=== PATIENT | male | born 1970 | race Caucasian/White ===

== ENCOUNTER 2019-12-18 13:49 | Inpatient (IN) | payer BC, OTHER ==
[~2019-12-18] VITALS: Ht 177.8 cm; Wt 68.0 kg
[2019-12-18] MEDS ORDERED: DERMOPLAST 60ML BOTTLE TOP ONE (14:15)
[2019-12-18] MEDS ORDERED: SODIUM CHLORIDE 0.9% 500 ML IVB ONE (14:15)
[2019-12-18 14:51] LABS: Basophils # (auto) 0 10 ^3/uL (0-0.2); Basophils % (auto) 0.4 % (0.0-2.0); Eosinophils # (auto) 0.1 10 ^3/uL (0-0.8); Eosinophils % (auto) 1.1 % (0.0-7.0); Hematocrit 44.9 % (41.0-53.0); Hemoglobin 15.6 g/dL (13.5-17.5); Lymphocytes # (auto) 1.8 10 ^3/uL (0.4-5.4); Lymphocytes % (auto) 24.9 % (10.0-50.0); Mean Corpuscular Hemoglobin 32.3 pg (28.0-32.0); Mean Corpuscular Hgb Conc. 34.8 g/dL (32.0-36.0); Monocytes # (auto) 0.5 10 ^3/uL (0-1.3); Monocytes % (auto) 7.2 % (0.0-12.0); Neutrophils # (auto) 4.8 10 ^3/uL (1.6-8.6); Neutrophils % (auto) 66.4 % (37.0-80.0); Nucleated Red Blood Cells % 0.2 %; Platelet Count (auto) 216 10^3/uL (140-450); Red Blood Cells 4.83 10^6/uL (4.5-5.90); Red Cell Distribution Width 14.4 % (11.8-14.3); White Blood Cell 7.2 10^3/uL (4.4-10.8)
[2019-12-18 15:08] LABS: Alanine Aminotransferase 39 U/L (16-61); Albumin 3.6 g/dL (3.4-5.0); Anion Gap 7 (5-15); Aspartate Aminotransferase 24 U/L (15-37); BUN/Creatinine Ratio 12.2; Blood Alcohol < 3.0 mg/dL (0-5); Blood Urea Nitrogen 17 mg/dL (7-18); Calcium 8.6 mg/dL (8.5-10.1); Carbon Dioxide 25 mmol/L (21-32); Chloride 106 mmol/L (98-107); GFR African American 70 mL/min; GFR Non-African American 57 mL/min; Glucose 129 mg/dL (74-106); Potassium 3.6 mmol/L (3.5-5.1); Sodium 138 mmol/L (136-145)
[2019-12-18 15:11] LABS: Alkaline Phosphatase 90 U/L (45-117); Bilirubin, Total 0.6 mg/dL (0.2-1.0); Total Protein 7.2 g/dL (6.4-8.2)
[2019-12-18] MEDS ORDERED: LORazepam 2MG/ML-1ML VIAL ONE (16:17)
[2019-12-18] MEDS ORDERED: LORazepam 2MG/ML-1ML VIAL IV ONE (16:30)
[2019-12-18] MEDS ORDERED: LAMO25TA2 PO (16:53)
[2019-12-18] MEDS ORDERED: LEVE500T32 PO (16:53)
[2019-12-18] MEDS ORDERED: ONDANSETRON HCL 4 MG/2 ML VIAL IV PRN (17:00)
[2019-12-18] MEDS ORDERED: HYDROcodone-ACET 5/325MG TAB PO PRN (17:00)
[2019-12-18] MEDS ORDERED: LORazepam 2MG/ML-1ML VIAL IV PRN (17:00)
[2019-12-18] MEDS ORDERED: ACETAMINOPHEN 500 MG TAB PO PRN (17:00)
[2019-12-18] MEDS ORDERED: MORPHINE SULF INJ 2 MG/ML SYRINGE 1ML IV PRN ×2 (17:00)
[2019-12-18] MEDS ORDERED: NITROGLYCERIN 0.4 MG SL TAB SL PRN (17:00)
[2019-12-18 17:31] LABS: Alcohol, Urine < 3.0 mg/dL (0-10); Amphetamine Screen, Urine NEGATIVE (NEGATIVE); Barbiturate Scree,Urine NEGATIVE (NEGATIVE); Benzodiazephine Screen, Urine NEGATIVE (NEGATIVE); Cannabinoid Screen, Urine NEGATIVE (NEGATIVE); Cocaine Screen, Urine NEGATIVE (NEGATIVE); Opiate Scree,Urine NEGATIVE (NEGATIVE); Phencyclidine Screen, Urine NEGATIVE (NEGATIVE)
[2019-12-18 19:49] LABS: Folate (Folic Acid) 19.72 ng/mL (5.38-24)
[2019-12-18] MEDS ORDERED: levETIRAcetam 500 MG TAB PO SCH (22:00)
[2019-12-18] MEDS ORDERED: lamoTRIgine 25 MG TAB PO SCH (22:00)
[2019-12-19 07:56] VITALS: BP 132/65
[2019-12-19] MEDS ORDERED: FAMOTIDINE 20 MG TAB PO SCH (10:00)
== END 2019-12-19 09:08 | disposition left against medical advice (07) | DRG 101 ==
LOC: ER 13:49 → EDBD 13:49 → TELE 13:50
PROVIDERS: ADMIT Nurse Practitioner Acute Care; ATTEND Internal Medicine
DX: G40.401 Other generalized epilepsy and epileptic syndromes, not intractable, with status epilepticus (principal); M48.02 Spinal stenosis, cervical region; N18.30 Chronic kidney disease, stage 3 unspecified; S00.11XA Contusion of right eyelid and periocular area, initial encounter; Z79.899 Other long term (current) drug therapy; Z85.841 Personal history of malignant neoplasm of brain; Z87.442 Personal history of urinary calculi; S09.8XXA Other specified injuries of head, initial encounter; S60.511A Abrasion of right hand, initial encounter; W18.30XA Fall on same level, unspecified, initial encounter; Y93.89 Activity, other specified; Y92.89 Other specified places as the place of occurrence of the external cause
CPT/HCPCS: 36415; 36600; 70450; 72125; 80053; 80307; 80320; 82306; 82746; 82805; 84425; 84443; 85025; 96361; 96374; G0378; J7060

== ENCOUNTER 2020-07-23 16:59 | Inpatient (IN) | payer BC, MEDICARE ==
[~2020-07-23] VITALS: Ht 177.8 cm; Wt 80.2 kg
[~2020-07-23 16:59] MED LIST: LAMO25TA2 PO; LEVE500T32 PO
[2020-07-23 17:53] LABS: Basophils # (auto) 0 10 ^3/uL (0-0.2); Basophils % (auto) 0.5 % (0.0-2.0); Eosinophils # (auto) 0 10 ^3/uL (0-0.8); Eosinophils % (auto) 0.9 % (0.0-7.0); Hematocrit 43.9 % (41.0-53.0); Hemoglobin 15.2 g/dL (13.5-17.5); Lymphocytes # (auto) 1.6 10 ^3/uL (0.4-5.4); Lymphocytes % (auto) 31.2 % (10.0-50.0); Mean Corpuscular Hemoglobin 31.8 pg (28.0-32.0); Mean Corpuscular Hgb Conc. 34.6 g/dL (32.0-36.0); Monocytes # (auto) 0.3 10 ^3/uL (0-1.3); Monocytes % (auto) 6.6 % (0.0-12.0); Neutrophils # (auto) 3.1 10 ^3/uL (1.6-8.6); Neutrophils % (auto) 60.8 % (37.0-80.0); Nucleated Red Blood Cells % 0.1 %; Platelet Count (auto) 176 10^3/uL (140-450); Red Blood Cells 4.78 10^6/uL (4.5-5.90); Red Cell Distribution Width 14.2 % (11.8-14.3)
[2020-07-23 18:09] LABS: Albumin 3.8 g/dL (3.4-5.0); Calcium 8.9 mg/dL (8.5-10.1); Potassium 4.3 mmol/L (3.5-5.1)
[2020-07-23 18:13] LABS: BUN/Creatinine Ratio 10.1; Bilirubin, Total 0.5 mg/dL (0.2-1.0); Total Protein 7.3 g/dL (6.4-8.2)
[2020-07-23] MEDS ORDERED: levETIRAcetam 500 MG/5ML INJ IV ONE (20:01)
[2020-07-23] MEDS ORDERED: LORazepam 2MG/ML-1ML VIAL IV PRN (21:00)
[2020-07-23] MEDS ORDERED: TEMAZEPAM 15 MG CAP PO PRN (21:00)
[2020-07-23] MEDS ORDERED: ONDANSETRON HCL 4 MG/2 ML VIAL IV PRN (21:00)
[2020-07-23] MEDS ORDERED: ACETAMINOPHEN 325 MG TAB PO PRN (21:00)
[2020-07-23] MEDS ORDERED: FAMOTIDINE 20 MG TAB PO SCH (22:00)
[2020-07-23] MEDS: lamoTRIgine 25 MG TAB PO SCH (22:00)
[2020-07-23 23:11] LABS: Urine Bacteria FEW /hpf (None Seen); Urine Blood Negative /uL (Negative); Urine Specific Gravity 1.021 (1.001-1.035); Urine Sperm PRESENT /hpf (None Seen); Urine WBC 1 /hpf (0 - 3)
[2020-07-24 06:51] LABS: Basophils # (auto) 0 10 ^3/uL (0-0.2); Basophils % (auto) 0.3 % (0.0-2.0); Eosinophils # (auto) 0 10 ^3/uL (0-0.8); Eosinophils % (auto) 0.2 % (0.0-7.0); Hematocrit 46.5 % (41.0-53.0); Hemoglobin 16.2 g/dL (13.5-17.5); Lymphocytes % (auto) 22.9 % (10.0-50.0); Mean Corpuscular Hemoglobin 31.7 pg (28.0-32.0); Mean Corpuscular Hgb Conc. 34.8 g/dL (32.0-36.0); Mean Corpuscular Volume 91.1 fL (80.0-100.0); Monocytes # (auto) 0.8 10 ^3/uL (0-1.3); Monocytes % (auto) 9.4 % (0.0-12.0); Neutrophils # (auto) 5.8 10 ^3/uL (1.6-8.6); Neutrophils % (auto) 67.2 % (37.0-80.0); Nucleated Red Blood Cells % 0.2 %; Platelet Count (auto) 190 10^3/uL (140-450); Red Cell Distribution Width 14.3 % (11.8-14.3); White Blood Cell 8.6 10^3/uL (4.4-10.8)
[2020-07-24 07:14] LABS: Potassium 3.4 mmol/L (3.5-5.1)
[2020-07-24 07:18] LABS: BUN/Creatinine Ratio 11.1
[2020-07-24] MEDS: levETIRAcetam 500 MG TAB PO SCH ×3 (08:46→22:00)
[2020-07-24] MEDS ORDERED: levETIRAcetam 500 MG TAB PO SCH (10:00)
[2020-07-24] MEDS: lamoTRIgine 25 MG TAB PO SCH ×2 (10:42→22:49)
[2020-07-24] MEDS ORDERED: KEP500T PO (15:18)
[2020-07-24] MEDS ORDERED: IBUP600T28 PO (15:19)
[2020-07-24] MEDS ORDERED: MULT-1018 PO (15:20)
[2020-07-24] MEDS ORDERED: POM (15:20)
[2020-07-24 20:20] VITALS: BP 132/67
[2020-07-25 05:00] VITALS: BP 105/77
[2020-07-25] MEDS: levETIRAcetam 500 MG TAB PO SCH ×2 (09:04→22:03)
[2020-07-25] MEDS: lamoTRIgine 25 MG TAB PO SCH ×2 (09:30→22:03)
[2020-07-25 09:45] VITALS: BP 103/72
[2020-07-25 13:00] VITALS: BP 111/78
[2020-07-25 16:33] VITALS: BP 122/80
[2020-07-25 21:16] VITALS: BP 127/81
[2020-07-26 04:14] VITALS: BP 105/87
[2020-07-26 09:00] VITALS: BP 98/64
[2020-07-26] MEDS: levETIRAcetam 500 MG TAB PO SCH (10:05)
[2020-07-26] MEDS: lamoTRIgine 25 MG TAB PO SCH (10:06)
[2020-07-26 10:51] VITALS: BP 98/68
== END 2020-07-26 11:50 | disposition home or self-care (01) | DRG 101 ==
LOC: EDBD 16:59 → ER 16:59 → OVERFLOW 20:51 → EAST 07-24 20:40 → WEST WING 07-25 09:43
PROVIDERS: ADMIT Nurse Practitioner; ATTEND Family Medicine
DX: G40.409 Other generalized epilepsy and epileptic syndromes, not intractable, without status epilepticus (principal); Z20.822 Contact with and (suspected) exposure to COVID-19; Z79.899 Other long term (current) drug therapy; Z85.841 Personal history of malignant neoplasm of brain; Z86.73 Personal history of transient ischemic attack (TIA), and cerebral infarction without residual deficits; Z87.442 Personal history of urinary calculi
CPT/HCPCS: 36415; 70450; 80048; 80053; 81001; 83605; 85025; 87426; 93005; 95819; 96365; G0378; J7060

== ENCOUNTER 2021-07-15 09:15 | Inpatient (IN) | payer OTHER, MEDICARE ==
[~2021-07-15] VITALS: Ht 365.8 cm; Wt 99.8 kg
[~2021-07-15 09:15] MED LIST changes: +IBUP600T28 PO; +KEP500T PO; -LEVE500T32 PO; +MULT-1018 PO; +POM
[2021-07-15] MEDS ORDERED: SODIUM CHLORIDE 0.9% 1,000 ML IV ONE (10:30)
[2021-07-15 11:07] LABS: Basophils # (auto) 0 10 ^3/uL (0-0.2); Basophils % (auto) 0.1 % (0.0-2.0); Eosinophils # (auto) 0 10 ^3/uL (0-0.8); Eosinophils % (auto) 0.1 % (0.0-7.0); Hematocrit 47.1 % (41.0-53.0); Hemoglobin 16.1 g/dL (13.5-17.5); Lymphocytes # (auto) 1.2 10 ^3/uL (0.4-5.4); Lymphocytes % (auto) 10.2 % (10.0-50.0); Mean Corpuscular Hemoglobin 31.8 pg (28.0-32.0); Mean Corpuscular Hgb Conc. 34.1 g/dL (32.0-36.0); Mean Corpuscular Volume 93.2 fL (80.0-100.0); Monocytes # (auto) 0.7 10 ^3/uL (0-1.3); Neutrophils # (auto) 9.7 10 ^3/uL (1.6-8.6); Neutrophils % (auto) 83.6 % (37.0-80.0); Nucleated Red Blood Cells % 0.1 %; Red Blood Cells 5.06 10^6/uL (4.5-5.90); Red Cell Distribution Width 13.9 % (11.8-14.3); White Blood Cell 11.6 10^3/uL (4.4-10.8)
[2021-07-15 11:28] LABS: Albumin 3.8 g/dL (3.4-5.0); Potassium 3.6 mmol/L (3.5-5.1)
[2021-07-15 11:31] LABS: BUN/Creatinine Ratio 8.8
[2021-07-15 11:33] LABS: Bilirubin, Total 0.4 mg/dL (0.2-1.0); Total Protein 7.3 g/dL (6.4-8.2)
[2021-07-15] MEDS ORDERED: MORPHINE SULFATE INJ 2 MG/ml SYRG IV PRN ×2 (13:15→16:45)
[2021-07-15] MEDS ORDERED: cefTRIAXone 1GM/50ML D5W 50 ML IV ONE (13:15)
[2021-07-15] MEDS ORDERED: AZITHROMYCIN 500MG/ 250ML 250 ML IV ONE (13:15)
[2021-07-15] MEDS ORDERED: NITROGLYCERIN 0.4 MG SL TAB SL PRN (13:15)
[2021-07-15] MEDS ORDERED: LIDOCAINE 2% JELLY 11ml (GLYDO) UR ONE (15:00)
[2021-07-15] MEDS: LORazepam 2MG/ML-1ML VIAL IV PRN ×2 (15:30→16:42)
[2021-07-15] MEDS ORDERED: SODIUM CHLORIDE 0.9% 2,000 ML IV ONE (16:15)
[2021-07-15] MEDS ORDERED: hydrALAZINE HCL 20 MG/ML VL IV PRN (16:45)
[2021-07-15] MEDS ORDERED: HYDROcodone-ACET 5/325MG TAB PO PRN (16:45)
[2021-07-15] MEDS ORDERED: DOCUSATE SOD 100 MG CAP PO PRN (16:45)
[2021-07-15] MEDS ORDERED: ONDANSETRON HCL 4 MG/2 ML VIAL IV PRN (16:45)
[2021-07-15 17:14] LABS: Magnesium 2.5 mg/dL (1.6-2.6)
[2021-07-15] MEDS: SODIUM CHLORIDE 0.9% 1,000 ML IV SCH (20:13)
[2021-07-15] MEDS: levETIRAcetam INJ 1,250 MG in D5W 5% 100 ML IV SCH (21:46)
[2021-07-15] MEDS: lamoTRIgine 25 MG TAB PO SCH (21:46)
[2021-07-15] MEDS: CLINDAMYCIN 600MG IV 50 ML IV SCH (22:29)
[2021-07-16] MEDS: LORazepam 0.5 MG TAB PO PRN ×2 (03:03→21:03)
[2021-07-16] MEDS: CLINDAMYCIN 600MG IV 50 ML IV SCH ×3 (05:37→23:21)
[2021-07-16 07:12] LABS: Basophils # (auto) 0 10 ^3/uL (0-0.2); Basophils % (auto) 0.3 % (0.0-2.0); Eosinophils # (auto) 0 10 ^3/uL (0-0.8); Eosinophils % (auto) 0.1 % (0.0-7.0); Hematocrit 41.7 % (41.0-53.0); Hemoglobin 14.4 g/dL (13.5-17.5); Lymphocytes # (auto) 1.5 10 ^3/uL (0.4-5.4); Lymphocytes % (auto) 19.6 % (10.0-50.0); Mean Corpuscular Hemoglobin 31.8 pg (28.0-32.0); Mean Corpuscular Hgb Conc. 34.6 g/dL (32.0-36.0); Monocytes # (auto) 0.6 10 ^3/uL (0-1.3); Monocytes % (auto) 7.2 % (0.0-12.0); Neutrophils # (auto) 5.7 10 ^3/uL (1.6-8.6); Neutrophils % (auto) 72.8 % (37.0-80.0); Nucleated Red Blood Cells % 0.1 %; Red Blood Cells 4.53 10^6/uL (4.5-5.90); Red Cell Distribution Width 13.9 % (11.8-14.3); White Blood Cell 7.8 10^3/uL (4.4-10.8)
[2021-07-16 07:26] LABS: INR 1.04 (0.9-1.15); Partial Thromboplastin Time 28.5 sec (23.6-33.0)
[2021-07-16 07:34] LABS: Potassium 3.6 mmol/L (3.5-5.1)
[2021-07-16 07:42] LABS: Thyroid Stimulating Hormone 1.95 uIU/mL (0.358-3.74)
[2021-07-16 07:44] LABS: Albumin 3.4 g/dL (3.4-5.0); BUN/Creatinine Ratio 8.7; Bilirubin, Total 0.6 mg/dL (0.2-1.0); CRP High Sensitivity 0.68 mg/dL (< 0.3); Calcium 8.5 mg/dL (8.5-10.1); Magnesium 2.5 mg/dL (1.6-2.6); Phosphorus 3.3 mg/dL (2.5-4.90); Total Protein 6.8 g/dL (6.4-8.2); Uric Acid 5.1 mg/dL (3.5-7.2)
[2021-07-16] MEDS: cefTRIAXone 1GM/50ML D5W 50 ML IV SCH (08:35)
[2021-07-16 09:09] LABS: Amphetamine Screen, Urine NEGATIVE (NEGATIVE); Barbiturate Scree,Urine NEGATIVE (NEGATIVE); Benzodiazephine Screen, Urine NEGATIVE (NEGATIVE); Cannabinoid Screen, Urine NEGATIVE (NEGATIVE); Cocaine Screen, Urine NEGATIVE (NEGATIVE); Opiate Scree,Urine NEGATIVE (NEGATIVE); Phencyclidine Screen, Urine NEGATIVE (NEGATIVE)
[2021-07-16 09:12] LABS: Urine Bacteria NONE SEEN /hpf (None Seen); Urine Blood 1+ /uL (Negative); Urine Specific Gravity 1.008 (1.001-1.035); Urine WBC 10 /hpf (0 - 3)
[2021-07-16] MEDS: SODIUM CHLORIDE 0.9% 1,000 ML IV SCH ×2 (09:56→18:55)
[2021-07-16] MEDS ORDERED: FAMOTIDINE (10MG/ML) 2ML VL IV SCH (10:00)
[2021-07-16] MEDS: lamoTRIgine 25 MG TAB PO SCH ×2 (10:05→22:42)
[2021-07-16] MEDS: ENOXAPARIN SOD 40 MG/0.4 ML SYRINGE SC SCH (10:05)
[2021-07-16] MEDS: levETIRAcetam INJ 1,250 MG in D5W 5% 100 ML IV SCH ×2 (10:09→22:42)
[2021-07-17] VITALS (7 sets, daily range): BP systolic 112–147; BP diastolic 78–87
[2021-07-17] MEDS: CLINDAMYCIN 600MG IV 50 ML IV SCH ×3 (05:56→22:00)
[2021-07-17] MEDS: cefTRIAXone 1GM/50ML D5W 50 ML IV SCH (08:51)
[2021-07-17] MEDS: SODIUM CHLORIDE 0.9% 1,000 ML IV SCH ×3 (08:51→22:35)
[2021-07-17] MEDS: ENOXAPARIN SOD 40 MG/0.4 ML SYRINGE SC SCH ×2 (10:00→10:25)
[2021-07-17] MEDS: lamoTRIgine 25 MG TAB PO SCH ×2 (10:25→21:51)
[2021-07-17] MEDS: levETIRAcetam INJ 1,250 MG in D5W 5% 100 ML IV SCH ×2 (11:12→21:55)
[2021-07-18 05:00] VITALS: BP 102/60
[2021-07-18] MEDS: CLINDAMYCIN 600MG IV 50 ML IV SCH (06:00)
[2021-07-18] MEDS: cefTRIAXone 1GM/50ML D5W 50 ML IV SCH (09:00)
[2021-07-18] MEDS ORDERED: CLIN300C8 PO (09:40)
[2021-07-18] MEDS ORDERED: LAM100T PO (09:40)
[2021-07-18] MEDS ORDERED: LEVE500T32 PO (09:40)
[2021-07-18] MEDS ORDERED: AZIT500T66 PO (09:40)
[2021-07-18] MEDS: ENOXAPARIN SOD 40 MG/0.4 ML SYRINGE SC SCH (10:00)
[2021-07-18] MEDS: levETIRAcetam INJ 1,250 MG in D5W 5% 100 ML IV SCH (10:00)
[2021-07-18] MEDS: lamoTRIgine 25 MG TAB PO SCH (11:46)
[2021-07-18 12:54] VITALS: BP 124/79
== END 2021-07-18 15:43 | disposition home or self-care (01) | DRG 100 ==
LOC: ER 09:15 → EDBD 09:15 → TELE 13:07 → TELE-WESTW 07-16 21:45
PROVIDERS: ADMIT Hospitalist; ATTEND Family Medicine
DX: G40.401 Other generalized epilepsy and epileptic syndromes, not intractable, with status epilepticus (principal); J69.0 Pneumonitis due to inhalation of food and vomit; I21.A1 Myocardial infarction type 2; N17.0 Acute kidney failure with tubular necrosis; N39.0 Urinary tract infection, site not specified; N18.31 Chronic kidney disease, stage 3a; Z20.822 Contact with and (suspected) exposure to COVID-19; E66.9 Obesity, unspecified; R32 Unspecified urinary incontinence; Z85.841 Personal history of malignant neoplasm of brain; Z79.899 Other long term (current) drug therapy; Z86.73 Personal history of transient ischemic attack (TIA), and cerebral infarction without residual deficits; Z87.442 Personal history of urinary calculi; Z91.81 History of falling
CPT/HCPCS: 36415; 70450; 71045; 80053; 80061; 80307; 81001; 82542; 82550; 82728; 83036; 83615; 83690; 83735; 83880; 84100; 84146; 84439; 84443; 84484; 84550; 85025; 85379; 85610; 85652; 85730; 86141; 87040; 87086; 93005; 95819; 96361; 96365; 97110; 97116; 97530; G0378; J0696; J3490; J7060

== ENCOUNTER 2021-07-24 22:09 | Emergency (ER) | payer MEDICARE, OTHER ==
[~2021-07-24] VITALS: Ht 175.3 cm; Wt 68.0 kg
[~2021-07-24 22:09] MED LIST changes: +AZIT500T66 PO; +CLIN300C8 PO; +LAM100T PO; +LEVE500T32 PO
[2021-07-24 23:39] LABS: Basophils # (auto) 0.1 10 ^3/uL (0-0.2); Basophils % (auto) 1.3 % (0.0-2.0); Eosinophils # (auto) 0 10 ^3/uL (0-0.8); Eosinophils % (auto) 0.2 % (0.0-7.0); Hematocrit 41.8 % (41.0-53.0); Hemoglobin 14.6 g/dL (13.5-17.5); Lymphocytes # (auto) 1.1 10 ^3/uL (0.4-5.4); Lymphocytes % (auto) 15.7 % (10.0-50.0); Mean Corpuscular Hemoglobin 31.8 pg (28.0-32.0); Mean Corpuscular Hgb Conc. 34.9 g/dL (32.0-36.0); Mean Corpuscular Volume 91.3 fL (80.0-100.0); Monocytes # (auto) 0.5 10 ^3/uL (0-1.3); Monocytes % (auto) 6.8 % (0.0-12.0); Neutrophils # (auto) 5.5 10 ^3/uL (1.6-8.6); Nucleated Red Blood Cells % 0.1 %; Red Blood Cells 4.58 10^6/uL (4.5-5.90); Red Cell Distribution Width 13.5 % (11.8-14.3); White Blood Cell 7.3 10^3/uL (4.4-10.8)
[2021-07-25] VITALS: BP 120/75
[2021-07-25 00:01] LABS: Albumin 3.7 g/dL (3.4-5.0); BUN/Creatinine Ratio 11.9; Calcium 8.9 mg/dL (8.5-10.1); Potassium 3.8 mmol/L (3.5-5.1)
[2021-07-25 00:04] LABS: Bilirubin, Total 0.2 mg/dL (0.2-1.0); Total Protein 7.1 g/dL (6.4-8.2)
[2021-07-25] MEDS ORDERED: levETIRAcetam 500 MG/5ML INJ IV ONE (00:10)
== END 2021-07-25 01:30 | disposition home or self-care (01) ==
LOC: ER 22:09 → EDBD 22:09 → ER 07-25 01:30
DX: G40.909 Epilepsy, unspecified, not intractable, without status epilepticus (principal)
CPT/HCPCS: 36415; 80053; 82542; 85025; 93005; 96365; 99284; J1953; J7060

== ENCOUNTER 2021-11-12 11:17 | Emergency (ER) | payer OTHER, MEDICARE ==
[~2021-11-12] VITALS: Ht 182.9 cm; Wt 81.7 kg
[2021-11-12] MEDS ORDERED: SODIUM CHLORIDE 0.9% 1,000 ML IV ONE ×2 (11:45)
[2021-11-12 12:01] LABS: Hemoglobin 15.9 g/dL (13.5-17.5); Mean Corpuscular Hemoglobin 30.4 pg (28.0-32.0); Mean Corpuscular Hgb Conc. 33.2 g/dL (32.0-36.0); Mean Corpuscular Volume 91.7 fL (80.0-100.0); Red Blood Cells 5.23 10^6/uL (4.5-5.90); Red Cell Distribution Width 14.1 % (11.8-14.3); White Blood Cell 8.1 10^3/uL (4.4-10.8)
[2021-11-12 12:11] LABS: Basophils % (manual) 0 (0.0-2.0); Blast Cells 0; Eosinophils % (manual) 0 (0-7); Metamyelocytes % 0; Myelocytes % 0; Promyelocytes % 0; Reactive Lymphocytes 0
[2021-11-12 12:20] LABS: Albumin 3.8 g/dL (3.4-5.0); Calcium 8.8 mg/dL (8.5-10.1); Potassium 4.7 mmol/L (3.5-5.1)
[2021-11-12 12:24] LABS: BUN/Creatinine Ratio 9.5; Bilirubin, Total 0.4 mg/dL (0.2-1.0); Total Protein 7.3 g/dL (6.4-8.2)
[2021-11-12 12:50] LABS: Band Neutrophils % (manual) 3; Lymphocytes % (manual) 25 (10.0-50.0); Monocytes % (manual) 7 (0-12)
[2021-11-12 13:21] LABS: Urine Bacteria NONE SEEN /hpf (None Seen); Urine Blood TRACE /uL (Negative); Urine Mucus FEW (None Seen); Urine Specific Gravity 1.018 (1.001-1.035); Urine WBC 3 /hpf (0 - 3)
[2021-11-12 14:00] VITALS: BP 129/87
== END 2021-11-12 15:26 | disposition left against medical advice (07) ==
LOC: EDUNIT# 11:17 → EDBD 11:17 → ER 11:17
DX: G40.802 Other epilepsy, not intractable, without status epilepticus (principal); Z53.29 Procedure and treatment not carried out because of patient's decision for other reasons; Z79.899 Other long term (current) drug therapy
CPT/HCPCS: 36415; 70450; 80053; 81001; 84484; 85007; 85027; 96361; 96365; 99284; J1953; J7030; J7060